=== PATIENT | male | born 1975 ===

== ENCOUNTER 2021-01-25 15:42 | Emergency (ER) | payer OTHER ==
[~2021-01-25] VITALS: Ht 172.7 cm; Wt 90.7 kg
[2021-01-25] MEDS ORDERED: LOPERAMIDE2 M1 PO (20:56)
[2021-01-25] MEDS ORDERED: INTESTINEX680 M2 PO (20:56)
== END 2021-01-25 21:13 | disposition home or self-care (01) ==
LOC: ER 15:42
DX: R19.7 Diarrhea, unspecified (principal)